=== PATIENT | female | born 1980 | race Two or more races ===

== ENCOUNTER 2019-10-15 20:26 | Inpatient (IN) | payer MEDICARE, OTHER ==
[~2019-10-15] VITALS: Ht 167.6 cm; Wt 100.7 kg
[~2019-10-15 20:26] MED LIST: ASPI-1497 PO; ATOR20TA65 PO; BRIMONIDINE LEFTEYE; FLUO20CA39 PO; HUMALOG SUBCUT; INSU3INS6 SUBCUT; INSULIN; LEVEMIR SUBCUT; LISI2.5T47 PO; LORA10TA7 PO; MECL-159 PO; METF-414 PO; METO25TA6 PO; PROAIR HFA INH; TIMOLOL MALEATE LEFTEYE; TRAZ-252 PO
[2019-10-15] MEDS ORDERED: SODIUM CHLORIDE 0.9% 500 ML IV ONE (22:55)
[2019-10-16 00:12] LABS: CHLORIDE 95 mEq/L (98-107)
[2019-10-16 00:18] LABS: PROTHROMBIN TIME 10.1 sec (9.6-11.0)
[2019-10-16 00:25] LABS: CLARITY URINE CLOUDY (CLEAR); COLOR URINE YELLOW (YELLOW); KETONES URINE NEGATIVE (NEGATIVE); LEUKOCYTE ESTERASE URINE 1+ (NEGATIVE); NITRITE URINE NEGATIVE (NEGATIVE); OCCULT BLOOD URINE 1+ (NEGATIVE); PH URINE 7.5 (4.5-8.0); PROTEIN URINE 3+ (NEGATIVE); SPECIFIC GRAVITY URINE 1.015 (1.005-1.030); UROBILINOGEN URINE 0.2 E.U./dL (0.2-1.0)
[2019-10-16 00:25] LABS: BASOPHILS % 0.8 % (0.0-2.0); EOSINOPHILS % 10.6 % (0.0-5.0); HEMATOCRIT. 34.4 % (36.0-48.0); HEMOGLOBIN. 11.7 g/dL (12.0-16.0); MEAN CORPUSCULAR HEMOGLOBIN 32.6 pg (28.0-32.0); MEAN CORPUSCULAR VOLUME 95.7 fL (81.0-99.0); MEAN PLATELET VOLUME 10.8 fl (7.4-10.4); MONOCYTES % 6.3 % (2.0-8.0); NEUTROPHILS % 63.3 % (40.0-76.0); PLATELET 126 x1000/uL (130-400); RED BLOOD CELL COUNT 3.59 mill/uL (4.2-5.4); RED CELL DISTRIBUTION WIDTH 14.1 % (11.6-14.6)
[2019-10-16 00:32] LABS: HCG SCREEN NEGATIVE
[2019-10-16] MEDS ORDERED: CEFTRIAXONE 1 G PREMIX 50 ML IV ONE (07:00)
[2019-10-16] MEDS ORDERED: DEXTROSE 50% WATER 50ML SYRINGE IV PRN (07:45)
[2019-10-16] MEDS ORDERED: HYDROCODONE/ACETAMINOPHEN 10/325MG TABLET PO PRN (07:45)
[2019-10-16] MEDS ORDERED: MORPHINE SULFATE 2 MG/ML CPJ (NOT FOR IM USE) IV PRN (07:45)
[2019-10-16] MEDS ORDERED: DIPHENHYDRAMINE 50MG/ML VIAL IV PRN (07:45)
[2019-10-16] MEDS ORDERED: IPRATROPIUM/ALBUTEROL 0.5-3(2.5)MG/3ML NEB NEB PRN (07:45)
[2019-10-16] MEDS ORDERED: CLONIDINE 0.1MG TABLET PO PRN (07:45)
[2019-10-16] MEDS ORDERED: MAGNESIUM/ALUMINUM HYDROXIDE/SIMETHICONE 30ML UDC PO PRN (07:45)
[2019-10-16] MEDS ORDERED: GUAIFENESIN 200MG/10ML SUGAR FREE UDC PO PRN (07:45)
[2019-10-16] MEDS ORDERED: LORAZEPAM 2MG/ML CPJ IV PRN (07:45)
[2019-10-16] MEDS ORDERED: HYDRALAZINE 20MG/ML VIAL IV PRN (07:45)
[2019-10-16] MEDS ORDERED: DOCUSATE SODIUM 100MG CAPSULE PO PRN (07:45)
[2019-10-16] MEDS ORDERED: ACETAMINOPHEN 325MG TABLET PO PRN (07:45)
[2019-10-16] MEDS ORDERED: ENOXAPARIN 40MG/0.4ML SYR SUBCUT SCH (07:45)
[2019-10-16] MEDS ORDERED: CEFTRIAXONE 1 G PREMIX 50 ML IV SCH (09:00)
[2019-10-16] MEDS: BLOOD SUGAR DIAGNOSTIC STRIP TEST SCH ×4 (09:28→21:41)
[2019-10-16] MEDS: ENOXAPARIN 30MG/0.3ML SYR SUBCUT SCH (09:28)
[2019-10-16] MEDS: INSULIN LISPRO 100 UNITS/ML SUBCUT SCH ×4 (09:31→21:43)
[2019-10-16] MEDS ORDERED: ASPIRIN 81MG EC TABLET PO SCH (12:15)
[2019-10-16 13:49] VITALS: BP 179/92
[2019-10-16] MEDS: SODIUM CHLORIDE 0.9% INJ 3ML FLUSH IVF SCH ×2 (14:46→21:42)
[2019-10-16] MEDS: ONDANSETRON HCL 4MG/2ML INJ IV PRN (15:05)
[2019-10-16 16:31] LABS: CREATINE KINASE 109 IU/L (26-192)
[2019-10-16 16:34] LABS: CREATINE KINASE MB FRACTION 1.6 ng/mL (0.5-3.6)
[2019-10-16 16:45] VITALS: BP 120/63
[2019-10-16] MEDS ORDERED: MECLIZINE 25MG TABLET PO PRN (17:00)
[2019-10-16] MEDS ORDERED: MELA5TAB19 PO (17:01)
[2019-10-16 20:00] VITALS: BP 145/66
[2019-10-16] MEDS ORDERED: LORATADINE 10MG TABLET PO SCH (21:00)
[2019-10-16] MEDS ORDERED: TRAZODONE HCL 50MG TABLET PO SCH (21:00)
[2019-10-16] MEDS: BRIMONIDINE 0.2% OPHTH DROPS 5ML LEFTEYE SCH (21:39)
[2019-10-16] MEDS: TIMOLOL MALEATE 0.25% OPHTH DROPS 5ML LEFTEYE SCH (21:39)
[2019-10-16] MEDS: METOPROLOL TARTRATE 25MG TABLET PO SCH (21:41)
[2019-10-17] VITALS: BP 158/84
[2019-10-17] MEDS: ONDANSETRON HCL 4MG/2ML INJ IV PRN ×2 (00:01→11:41)
[2019-10-17 06:55] LABS: BASOPHILS % 0.8 % (0.0-2.0); HEMATOCRIT. 29.9 % (36.0-48.0); HEMOGLOBIN. 10.3 g/dL (12.0-16.0); MEAN CORPUSCULAR HEMOGLOBIN 32.7 pg (28.0-32.0); MEAN CORPUSCULAR VOLUME 95.2 fL (81.0-99.0); MEAN PLATELET VOLUME 10.8 fl (7.4-10.4); MONOCYTES % 7.9 % (2.0-8.0); NEUTROPHILS % 70.3 % (40.0-76.0); PLATELET 114 x1000/uL (130-400); RED BLOOD CELL COUNT 3.15 mill/uL (4.2-5.4); RED CELL DISTRIBUTION WIDTH 14.1 % (11.6-14.6)
[2019-10-17 07:34] LABS: CHLORIDE 103 mEq/L (98-107)
[2019-10-17 07:42] LABS: LDL CHOLESTEROL 71 mg/dL (5-100)
[2019-10-17 07:43] LABS: CREATINE KINASE 98 IU/L (26-192); CREATINE KINASE MB FRACTION 1.9 ng/mL (0.5-3.6); HDL CHOLESTEROL 21 mg/dL (40-59)
[2019-10-17 07:44] LABS: T4 FREE 1.21 ng/dL (0.76-1.46)
[2019-10-17] MEDS: BLOOD SUGAR DIAGNOSTIC STRIP TEST SCH ×2 (07:53→12:20)
[2019-10-17 08:00] VITALS: BP 157/84
[2019-10-17] MEDS: INSULIN LISPRO 100 UNITS/ML SUBCUT SCH (08:22)
[2019-10-17] MEDS ORDERED: FLUOXETINE HCL 20MG CAPSULE PO SCH (09:00)
[2019-10-17] MEDS ORDERED: ASPIRIN 81MG EC TABLET PO SCH (09:00)
[2019-10-17] MEDS ORDERED: ATORVASTATIN CALCIUM 20MG TABLET PO SCH (09:00)
[2019-10-17] MEDS: TIMOLOL MALEATE 0.25% OPHTH DROPS 5ML LEFTEYE SCH (09:00)
[2019-10-17] MEDS: METOPROLOL TARTRATE 25MG TABLET PO SCH (09:00)
[2019-10-17] MEDS ORDERED: METFORMIN HCL 500MG TABLET PO SCH (09:00)
[2019-10-17] MEDS: BRIMONIDINE 0.2% OPHTH DROPS 5ML LEFTEYE SCH (09:00)
[2019-10-17] MEDS ORDERED: LISINOPRIL 2.5MG TABLET PO SCH (09:00)
[2019-10-17] MEDS: ENOXAPARIN 30MG/0.3ML SYR SUBCUT SCH (09:00)
[2019-10-17] MEDS ORDERED: CEFTRIAXONE 1,000 MG in DEXTROSE 5% WATER 50 ML IV SCH (09:00)
[2019-10-17 11:20] VITALS: BP 157/84
[2019-10-17] MEDS ORDERED: INSULIN LISPRO (HIGH DOSE) 100 UNITS/ML SUBCUT SCH (12:50)
== END 2019-10-17 12:30 | disposition home or self-care (01) | DRG 64 ==
LOC: ER 20:26 → EDBEDREQ 10-16 00:44 → EDBEDREQTM 10-16 00:44 → 6WST 10-16 01:45 → EDBEDREQ 10-16 01:47 → EDBEDREQTM 10-16 01:47 → ENRESERV 10-16 09:52
PROVIDERS: ADMIT Internal Medicine; ATTEND Internal Medicine
PROC: 5A1D70Z Performance of Urinary Filtration, Intermittent, Less than 6 Hours Per Day (ICD-10-PCS; principal; 2019-10-16)
DX: I63.9 Cerebral infarction, unspecified (principal); N18.6 End stage renal disease; N39.0 Urinary tract infection, site not specified; I13.2 Hypertensive heart and chronic kidney disease with heart failure and with stage 5 chronic kidney disease, or end stage renal disease; E87.1 Hypo-osmolality and hyponatremia; I50.9 Heart failure, unspecified; F32.9 Major depressive disorder, single episode, unspecified; F41.9 Anxiety disorder, unspecified; E78.5 Hyperlipidemia, unspecified; D69.6 Thrombocytopenia, unspecified; E11.42 Type 2 diabetes mellitus with diabetic polyneuropathy; I65.23 Occlusion and stenosis of bilateral carotid arteries; E11.22 Type 2 diabetes mellitus with diabetic chronic kidney disease; E66.8 Other obesity; R20.0 Anesthesia of skin; R94.31 Abnormal electrocardiogram [ECG] [EKG]; E11.65 Type 2 diabetes mellitus with hyperglycemia; H54.8 Legal blindness, as defined in USA; Z99.2 Dependence on renal dialysis; Z83.3 Family history of diabetes mellitus; Z91.19 Patient's noncompliance with other medical treatment and regimen; Z68.35 Body mass index [BMI] 35.0-35.9, adult; Z79.899 Other long term (current) drug therapy; Z79.82 Long term (current) use of aspirin; Z79.4 Long term (current) use of insulin; D63.8 Anemia in other chronic diseases classified elsewhere
CPT/HCPCS: 36415; 71045; 80053; 80061; 81003; 82550; 82553; 82962; 83036; 84439; 84443; 84484; 84703; 85025; 93005; 93970; 99285; J0360; J0696; J1650; J1815; J2060; J2270; J2405; J7040; J7060